=== PATIENT | male | born 1955 | race Native Hawaiian/Other Pacific Islander ===

== ENCOUNTER 2020-04-07 08:44 | Outpatient (CLI) | payer OTHER | END 2020-04-07 19:32 | disposition home or self-care (01) | LOC: US 08:44 | PROVIDERS: ATTEND Internal Medicine | DX: M79.605 Pain in left leg (principal); M79.604 Pain in right leg ==

== ENCOUNTER 2020-05-06 09:49 | Outpatient (CLI) | payer OTHER | END 2020-05-06 23:17 | disposition home or self-care (01) | LOC: RAD 09:49 | PROVIDERS: ATTEND Nurse Practitioner | DX: R05 Cough (principal); R06.89 Other abnormalities of breathing ==

== ENCOUNTER 2020-07-17 10:40 | Outpatient (CLI) | payer OTHER ==
[2020-07-17 11:01] LABS: POTASSIUM 4.2 mmol/L (3.6-5.2)
== END 2020-07-17 21:30 | disposition home or self-care (01) ==
LOC: LABW 10:40
PROVIDERS: ATTEND Nurse Practitioner Adult Health
DX: E11.65 Type 2 diabetes mellitus with hyperglycemia (principal); R35.8 Other polyuria
CPT/HCPCS: 36415; 80048

== ENCOUNTER 2020-08-13 08:04 | Outpatient (CLI) | payer OTHER ==
[~2020-08-13] VITALS: Ht 175.3 cm; Wt 81.6 kg
== END 2020-08-13 21:47 | disposition home or self-care (01) ==
LOC: DIABINF 08:04
PROVIDERS: ATTEND Internal Medicine Endocrinology, Diabetes & Metabolism
DX: E11.65 Type 2 diabetes mellitus with hyperglycemia (principal); I25.10 Atherosclerotic heart disease of native coronary artery without angina pectoris; I10 Essential (primary) hypertension; E78.2 Mixed hyperlipidemia; K21.9 Gastro-esophageal reflux disease without esophagitis; Z72.0 Tobacco use
CPT/HCPCS: 82948; 96365; 96366; 96521; 99204; J1718; J1815

== ENCOUNTER 2020-08-15 07:40 | Outpatient (CLI) | payer OTHER ==
[~2020-08-15] VITALS: Ht 175.3 cm; Wt 81.6 kg
== END 2020-08-15 21:44 | disposition home or self-care (01) ==
LOC: DIABINF 07:40
PROVIDERS: ATTEND Internal Medicine Endocrinology, Diabetes & Metabolism
DX: E11.65 Type 2 diabetes mellitus with hyperglycemia (principal); I25.10 Atherosclerotic heart disease of native coronary artery without angina pectoris; I10 Essential (primary) hypertension; E78.2 Mixed hyperlipidemia; K21.9 Gastro-esophageal reflux disease without esophagitis; Z72.0 Tobacco use
CPT/HCPCS: 82948; 96365; 96366; 96521; 99214; J1718; J1815

== ENCOUNTER 2020-08-20 07:49 | Outpatient (CLI) | payer OTHER ==
[~2020-08-20] VITALS: Ht 175.3 cm; Wt 81.6 kg
== END 2020-08-20 19:16 | disposition home or self-care (01) ==
LOC: DIABINF 07:49
PROVIDERS: ATTEND Internal Medicine Endocrinology, Diabetes & Metabolism
DX: E11.65 Type 2 diabetes mellitus with hyperglycemia (principal); E11.40 Type 2 diabetes mellitus with diabetic neuropathy, unspecified; I10 Essential (primary) hypertension; Z72.0 Tobacco use; I25.10 Atherosclerotic heart disease of native coronary artery without angina pectoris; K21.9 Gastro-esophageal reflux disease without esophagitis; Z95.5 Presence of coronary angioplasty implant and graft; E55.9 Vitamin D deficiency, unspecified; E78.2 Mixed hyperlipidemia
CPT/HCPCS: 82948; 96365; 96366; 96521; 99214; J1815; J1817

== ENCOUNTER 2020-08-22 08:11 | Outpatient (CLI) | payer OTHER ==
[~2020-08-22] VITALS: Ht 175.3 cm; Wt 81.6 kg
== END 2020-08-22 21:47 | disposition home or self-care (01) ==
LOC: DIABINF 08:11
PROVIDERS: ATTEND Internal Medicine Endocrinology, Diabetes & Metabolism
DX: E11.65 Type 2 diabetes mellitus with hyperglycemia (principal); E11.40 Type 2 diabetes mellitus with diabetic neuropathy, unspecified; I10 Essential (primary) hypertension; E78.2 Mixed hyperlipidemia; Z72.0 Tobacco use; I25.10 Atherosclerotic heart disease of native coronary artery without angina pectoris; Z95.1 Presence of aortocoronary bypass graft; K21.9 Gastro-esophageal reflux disease without esophagitis; E55.9 Vitamin D deficiency, unspecified; J30.89 Other allergic rhinitis; R53.83 Other fatigue
CPT/HCPCS: 82948; 96365; 96366; 96521; J1815; J1817

== ENCOUNTER 2020-09-03 07:49 | Outpatient (CLI) | payer OTHER ==
[~2020-09-03] VITALS: Ht 175.3 cm; Wt 81.6 kg
== END 2020-09-03 21:24 | disposition home or self-care (01) ==
LOC: DIABINF 07:49
PROVIDERS: ATTEND Internal Medicine Endocrinology, Diabetes & Metabolism
DX: E11.65 Type 2 diabetes mellitus with hyperglycemia (principal); E11.40 Type 2 diabetes mellitus with diabetic neuropathy, unspecified; I10 Essential (primary) hypertension; E78.2 Mixed hyperlipidemia; Z72.0 Tobacco use; I25.10 Atherosclerotic heart disease of native coronary artery without angina pectoris; Z95.1 Presence of aortocoronary bypass graft; K21.9 Gastro-esophageal reflux disease without esophagitis; E55.9 Vitamin D deficiency, unspecified; J30.89 Other allergic rhinitis; R53.83 Other fatigue
CPT/HCPCS: 82948; 96365; 96366; 96521; J1815; J1817

== ENCOUNTER 2020-09-05 08:01 | Outpatient (CLI) | payer OTHER ==
[~2020-09-05] VITALS: Ht 175.3 cm; Wt 81.6 kg
== END 2020-09-05 22:16 | disposition home or self-care (01) ==
LOC: DIABINF 08:01
PROVIDERS: ATTEND Internal Medicine Endocrinology, Diabetes & Metabolism
DX: E11.65 Type 2 diabetes mellitus with hyperglycemia (principal); E11.40 Type 2 diabetes mellitus with diabetic neuropathy, unspecified; I10 Essential (primary) hypertension; E78.2 Mixed hyperlipidemia; Z72.0 Tobacco use; I25.10 Atherosclerotic heart disease of native coronary artery without angina pectoris; Z95.1 Presence of aortocoronary bypass graft; K21.9 Gastro-esophageal reflux disease without esophagitis; E55.9 Vitamin D deficiency, unspecified; J30.89 Other allergic rhinitis; R53.83 Other fatigue; N20.0 Calculus of kidney
CPT/HCPCS: 82948; 96365; 96366; 96521; J1815; J1817

== ENCOUNTER 2020-09-12 08:06 | Outpatient (CLI) | payer OTHER ==
[~2020-09-12] VITALS: Ht 175.3 cm; Wt 81.6 kg
== END 2020-09-12 22:43 | disposition home or self-care (01) ==
LOC: DIABINF 08:06
PROVIDERS: ATTEND Internal Medicine Endocrinology, Diabetes & Metabolism
DX: E11.65 Type 2 diabetes mellitus with hyperglycemia (principal); E11.40 Type 2 diabetes mellitus with diabetic neuropathy, unspecified; I10 Essential (primary) hypertension; E78.2 Mixed hyperlipidemia; Z72.0 Tobacco use; I25.10 Atherosclerotic heart disease of native coronary artery without angina pectoris; Z95.1 Presence of aortocoronary bypass graft; K21.9 Gastro-esophageal reflux disease without esophagitis; E55.9 Vitamin D deficiency, unspecified; J30.89 Other allergic rhinitis; R53.83 Other fatigue; N20.0 Calculus of kidney
CPT/HCPCS: 82948; 96365; 96366; 96521; J1815; J1817

== ENCOUNTER 2020-09-19 08:05 | Outpatient (CLI) | payer OTHER ==
[~2020-09-19] VITALS: Ht 175.3 cm; Wt 85.7 kg
== END 2020-09-19 19:52 | disposition home or self-care (01) ==
LOC: DIABINF 08:05
PROVIDERS: ATTEND Internal Medicine Endocrinology, Diabetes & Metabolism
DX: E11.65 Type 2 diabetes mellitus with hyperglycemia (principal); E11.40 Type 2 diabetes mellitus with diabetic neuropathy, unspecified; I10 Essential (primary) hypertension; E78.2 Mixed hyperlipidemia; Z72.0 Tobacco use; I25.10 Atherosclerotic heart disease of native coronary artery without angina pectoris; Z95.1 Presence of aortocoronary bypass graft; K21.9 Gastro-esophageal reflux disease without esophagitis; E55.9 Vitamin D deficiency, unspecified; J30.89 Other allergic rhinitis; R53.83 Other fatigue; N20.0 Calculus of kidney
CPT/HCPCS: 82948; 96365; 96366; 96521; J1815; J1817

== ENCOUNTER 2020-09-26 07:42 | Outpatient (CLI) | payer OTHER ==
[~2020-09-26] VITALS: Ht 175.3 cm; Wt 81.6 kg
== END 2020-09-26 18:55 | disposition home or self-care (01) ==
LOC: DIABINF 07:42
PROVIDERS: ATTEND Internal Medicine Endocrinology, Diabetes & Metabolism
DX: E11.65 Type 2 diabetes mellitus with hyperglycemia (principal); E11.40 Type 2 diabetes mellitus with diabetic neuropathy, unspecified; I10 Essential (primary) hypertension; E78.2 Mixed hyperlipidemia; Z72.0 Tobacco use; I25.10 Atherosclerotic heart disease of native coronary artery without angina pectoris; Z95.1 Presence of aortocoronary bypass graft; K21.9 Gastro-esophageal reflux disease without esophagitis; E55.9 Vitamin D deficiency, unspecified; J30.89 Other allergic rhinitis; R53.83 Other fatigue; N20.0 Calculus of kidney
CPT/HCPCS: 82948; 96365; 96366; 96521; J1815; J1817

== ENCOUNTER 2020-10-03 07:58 | Outpatient (CLI) | payer OTHER ==
[~2020-10-03] VITALS: Ht 175.3 cm; Wt 81.6 kg
== END 2020-10-03 11:30 | disposition home or self-care (01) ==
LOC: DIABINF 07:58
PROVIDERS: ATTEND Internal Medicine Endocrinology, Diabetes & Metabolism
DX: E11.65 Type 2 diabetes mellitus with hyperglycemia (principal); E55.9 Vitamin D deficiency, unspecified; E78.2 Mixed hyperlipidemia; I10 Essential (primary) hypertension; Z72.0 Tobacco use; I25.10 Atherosclerotic heart disease of native coronary artery without angina pectoris; Z95.5 Presence of coronary angioplasty implant and graft; E11.40 Type 2 diabetes mellitus with diabetic neuropathy, unspecified; K21.9 Gastro-esophageal reflux disease without esophagitis
CPT/HCPCS: 82948; 96365; 96366; 96521; J1815; J1817

== ENCOUNTER 2020-10-10 07:44 | Outpatient (CLI) | payer OTHER ==
[~2020-10-10] VITALS: Ht 175.3 cm; Wt 81.6 kg
== END 2020-10-10 11:30 | disposition home or self-care (01) ==
LOC: DIABINF 07:44
PROVIDERS: ATTEND Internal Medicine Endocrinology, Diabetes & Metabolism
DX: E11.65 Type 2 diabetes mellitus with hyperglycemia (principal); E11.40 Type 2 diabetes mellitus with diabetic neuropathy, unspecified; I10 Essential (primary) hypertension; F17.210 Nicotine dependence, cigarettes, uncomplicated; E78.00 Pure hypercholesterolemia, unspecified; E55.9 Vitamin D deficiency, unspecified; I25.10 Atherosclerotic heart disease of native coronary artery without angina pectoris; Z95.5 Presence of coronary angioplasty implant and graft; Z95.1 Presence of aortocoronary bypass graft; K21.9 Gastro-esophageal reflux disease without esophagitis; J30.2 Other seasonal allergic rhinitis; R53.83 Other fatigue; Z87.442 Personal history of urinary calculi
CPT/HCPCS: 82948; 96365; 96366; 96521; J1815; J1817

== ENCOUNTER 2020-10-17 07:49 | Outpatient (CLI) | payer OTHER ==
[~2020-10-17] VITALS: Ht 175.3 cm; Wt 81.6 kg
== END 2020-10-17 23:00 | disposition home or self-care (01) ==
LOC: DIABINF 07:49
PROVIDERS: ATTEND Internal Medicine Endocrinology, Diabetes & Metabolism
DX: E11.65 Type 2 diabetes mellitus with hyperglycemia (principal); E11.40 Type 2 diabetes mellitus with diabetic neuropathy, unspecified; I10 Essential (primary) hypertension; E78.2 Mixed hyperlipidemia; Z72.0 Tobacco use; I25.10 Atherosclerotic heart disease of native coronary artery without angina pectoris; Z95.1 Presence of aortocoronary bypass graft; K21.9 Gastro-esophageal reflux disease without esophagitis; E55.9 Vitamin D deficiency, unspecified; J30.2 Other seasonal allergic rhinitis; R53.83 Other fatigue; N52.8 Other male erectile dysfunction
CPT/HCPCS: 82948; 96365; 96366; 96521; J1815; J1817

== ENCOUNTER 2020-10-24 07:48 | Outpatient (CLI) | payer OTHER ==
[~2020-10-24] VITALS: Ht 175.3 cm; Wt 81.6 kg
== END 2020-10-24 21:50 | disposition home or self-care (01) ==
LOC: DIABINF 07:48
PROVIDERS: ATTEND Internal Medicine Endocrinology, Diabetes & Metabolism
DX: E11.65 Type 2 diabetes mellitus with hyperglycemia (principal); E11.40 Type 2 diabetes mellitus with diabetic neuropathy, unspecified; I10 Essential (primary) hypertension; E78.2 Mixed hyperlipidemia; Z72.0 Tobacco use; I25.10 Atherosclerotic heart disease of native coronary artery without angina pectoris; Z95.1 Presence of aortocoronary bypass graft; K21.9 Gastro-esophageal reflux disease without esophagitis; E55.9 Vitamin D deficiency, unspecified; J30.2 Other seasonal allergic rhinitis; R53.83 Other fatigue; N52.8 Other male erectile dysfunction
CPT/HCPCS: 82948; 96365; 96366; 96521; J1815; J1817

== ENCOUNTER 2020-10-31 07:57 | Outpatient (CLI) | payer OTHER ==
[~2020-10-31] VITALS: Ht 175.3 cm; Wt 81.6 kg
== END 2020-10-31 22:49 | disposition home or self-care (01) ==
LOC: DIABINF 07:57
PROVIDERS: ATTEND Internal Medicine Endocrinology, Diabetes & Metabolism
DX: E11.65 Type 2 diabetes mellitus with hyperglycemia (principal); E11.40 Type 2 diabetes mellitus with diabetic neuropathy, unspecified; I10 Essential (primary) hypertension; E78.2 Mixed hyperlipidemia; Z72.0 Tobacco use; I25.10 Atherosclerotic heart disease of native coronary artery without angina pectoris; Z95.1 Presence of aortocoronary bypass graft; K21.9 Gastro-esophageal reflux disease without esophagitis; E55.9 Vitamin D deficiency, unspecified; J30.2 Other seasonal allergic rhinitis; R53.83 Other fatigue
CPT/HCPCS: 82948; 96365; 96366; 96521; J1815; J1817

== ENCOUNTER 2020-11-14 07:54 | Outpatient (CLI) | payer OTHER ==
[~2020-11-14] VITALS: Ht 175.3 cm; Wt 81.6 kg
== END 2020-11-14 22:34 | disposition home or self-care (01) ==
LOC: DIABINF 07:54
PROVIDERS: ATTEND Internal Medicine Endocrinology, Diabetes & Metabolism
DX: E11.65 Type 2 diabetes mellitus with hyperglycemia (principal); E11.40 Type 2 diabetes mellitus with diabetic neuropathy, unspecified; I10 Essential (primary) hypertension; E78.2 Mixed hyperlipidemia; Z72.0 Tobacco use; I25.10 Atherosclerotic heart disease of native coronary artery without angina pectoris; Z98.890 Other specified postprocedural states; K21.9 Gastro-esophageal reflux disease without esophagitis; E55.9 Vitamin D deficiency, unspecified; J30.89 Other allergic rhinitis; R53.83 Other fatigue; N20.0 Calculus of kidney; N52.8 Other male erectile dysfunction
CPT/HCPCS: 82948; 96365; 96366; 96521; J1815; J1817

== ENCOUNTER 2020-11-28 07:58 | Outpatient (CLI) | payer OTHER | END 2020-11-28 23:03 | disposition home or self-care (01) | LOC: DIABINF 07:58 | PROVIDERS: ATTEND Nurse Practitioner | DX: E11.65 Type 2 diabetes mellitus with hyperglycemia (principal); E11.42 Type 2 diabetes mellitus with diabetic polyneuropathy; I10 Essential (primary) hypertension; Z72.0 Tobacco use; E78.00 Pure hypercholesterolemia, unspecified; I25.10 Atherosclerotic heart disease of native coronary artery without angina pectoris; Z98.890 Other specified postprocedural states; K21.9 Gastro-esophageal reflux disease without esophagitis; E55.9 Vitamin D deficiency, unspecified; J30.89 Other allergic rhinitis; R53.83 Other fatigue; N20.0 Calculus of kidney; J44.9 Chronic obstructive pulmonary disease, unspecified; R06.2 Wheezing; R25.2 Cramp and spasm | CPT/HCPCS: 82948; 96365; 96366; 96521; J1817 ==

== ENCOUNTER 2020-12-12 08:01 | Outpatient (CLI) | payer OTHER | END 2020-12-12 21:56 | disposition home or self-care (01) | LOC: DIABINF 08:01 | PROVIDERS: ATTEND Nurse Practitioner | DX: E11.65 Type 2 diabetes mellitus with hyperglycemia (principal); E11.42 Type 2 diabetes mellitus with diabetic polyneuropathy; I10 Essential (primary) hypertension; Z72.0 Tobacco use; E78.00 Pure hypercholesterolemia, unspecified; I25.10 Atherosclerotic heart disease of native coronary artery without angina pectoris; Z98.890 Other specified postprocedural states; K21.9 Gastro-esophageal reflux disease without esophagitis; E55.9 Vitamin D deficiency, unspecified; J30.89 Other allergic rhinitis; R53.83 Other fatigue | CPT/HCPCS: 82948; 96365; 96366; 96521; J1815; J1817 ==

== ENCOUNTER 2021-09-16 08:46 | Outpatient (CLI) | payer OTHER | END 2021-09-16 19:09 | disposition home or self-care (01) | LOC: RESP 08:46 | PROVIDERS: ATTEND Specialist | DX: I25.10 Atherosclerotic heart disease of native coronary artery without angina pectoris (principal); I10 Essential (primary) hypertension; I21.4 Non-ST elevation (NSTEMI) myocardial infarction ==

== ENCOUNTER 2021-10-01 08:23 | Outpatient (CLI) | payer OTHER ==
[~2021-10-01] VITALS: Ht 175.3 cm; Wt 79.4 kg
== END 2021-10-01 19:13 | disposition home or self-care (01) ==
LOC: NM 08:23
PROVIDERS: ATTEND Specialist
DX: I25.10 Atherosclerotic heart disease of native coronary artery without angina pectoris (principal); I10 Essential (primary) hypertension; I21.4 Non-ST elevation (NSTEMI) myocardial infarction; Z72.0 Tobacco use
CPT/HCPCS: A9500; J2785

== ENCOUNTER 2021-12-10 12:35 | Outpatient (CLI) | payer OTHER ==
[2021-12-10 12:52] LABS: PLATELET COUNT 160 K/uL (142-355)
[2021-12-10 12:54] LABS: POTASSIUM 3.6 mmol/L (3.6-5.2)
== END 2021-12-10 19:26 | disposition home or self-care (01) ==
LOC: LABW 12:35
PROVIDERS: ATTEND Specialist
DX: R93.1 Abnormal findings on diagnostic imaging of heart and coronary circulation (principal)
CPT/HCPCS: 36415; 80048; 85027

== ENCOUNTER 2021-12-25 09:51 | Outpatient (CLI) | payer OTHER ==
[2021-12-25 10:07] LABS: PLATELET COUNT 185 K/uL (142-355)
[2021-12-25 10:21] LABS: POTASSIUM 4.3 mmol/L (3.6-5.2)
== END 2021-12-25 19:06 | disposition home or self-care (01) ==
LOC: LABW 09:51
PROVIDERS: ATTEND Specialist
DX: R93.1 Abnormal findings on diagnostic imaging of heart and coronary circulation (principal)
CPT/HCPCS: 36415; 80048; 85027

== ENCOUNTER 2022-12-28 10:31 | Outpatient (CLI) | payer BC | END 2022-12-28 18:58 | disposition home or self-care (01) | LOC: RESP 10:31 | PROVIDERS: ATTEND Surgery | DX: Z01.810 Encounter for preprocedural cardiovascular examination (principal); Z01.812 Encounter for preprocedural laboratory examination; I70.211 Atherosclerosis of native arteries of extremities with intermittent claudication, right leg | CPT/HCPCS: 93005 ==